=== PATIENT | female | born 1990 | race Caucasian/White ===

== ENCOUNTER → 2020-12-13 08:46 | Outpatient (BNVA) | payer BC, MEDICARE, SELFPAY | PROVIDERS: PCP Registered Nurse; Visit Provider Registered Nurse | DX: K76.0 Fatty (change of) liver, not elsewhere classified (principal); R73.9 Hyperglycemia, unspecified | CPT/HCPCS: 80053; 83036; 85025 ==

== ENCOUNTER → 2020-12-21 08:59 | Outpatient (BNVA) | payer BC, MEDICARE, SELFPAY | PROVIDERS: PCP Registered Nurse; Visit Provider Registered Nurse | DX: E11.9 Type 2 diabetes mellitus without complications (principal); Z71.3 Dietary counseling and surveillance | CPT/HCPCS: 81000 ==

== ENCOUNTER → 2021-06-02 11:33 | Outpatient (BNVA) | payer BC, MEDICARE, SELFPAY | PROVIDERS: PCP Registered Nurse; Visit Provider Registered Nurse | DX: Z01.419 Encounter for gynecological examination (general) (routine) without abnormal findings (principal); Z71.3 Dietary counseling and surveillance | CPT/HCPCS: 87081; 88175 ==

== ENCOUNTER → 2021-06-03 08:42 | Outpatient (BNVA) | payer BC, MEDICARE, SELFPAY | PROVIDERS: PCP Registered Nurse; Visit Provider Surgery | DX: Z11.52 Encounter for screening for COVID-19 (principal) | CPT/HCPCS: 87635 ==

== ENCOUNTER 2021-06-07 07:16 | Outpatient (CLI) | payer BC, MEDICARE, SELFPAY ==
--- NOTE | 2021-06-07 07:45 | US_ITS ---
WS: [id number] ULTRASOUND ABDOMEN CLINICAL INFORMATION: K29.60 - Other gastritis without bleeding COMPARISON: None. FINDINGS: Technically difficult examination due to body habitus. Liver Size: Normal. Craniocaudal length: 14.5 cm. Echogenicity: Coarse Surface nodularity: None. Mass (size and location): None. Bile ducts Intrahepatic ducts: Normal. Common bile duct diameter: 0.5 cm. Gallbladder Normal. Gallstones: None. Gallbladder sludge: None. Gallbladder wall thickening: None. Pericholecystic fluid: None. Sonographic Saenz sign: Absent. Pancreas Not well visualized Spleen Splenomegaly: None. Craniocaudal length: 10.5 cm. Right kidney: Normal. Hydronephrosis: None. Size: 11.7 cm x 5.1 cm x 4.5 cm Left kidney: Normal. Hydronephrosis: None. Size: 11.7 cm x 4.8 cm x 4.8 cm. Abdominal aorta and IVC Visualized portions are normal. Ascites: None. US/US abdomen complete* [id number] IMPRESSION:Technically difficult examination due to body habitus. 1. Diffuse fatty infiltration of the liver. 2. Normal gallbladder. 3. No hydronephrosis in either kidney. 4. Normal spleen.
== END 2021-06-07 07:17 | disposition home or self-care (01) ==
PROVIDERS: PCP Registered Nurse; Visit Provider Surgery
DX: K29.60 Other gastritis without bleeding (principal); K76.0 Fatty (change of) liver, not elsewhere classified
CPT/HCPCS: 76700

== ENCOUNTER 2021-06-09 06:33 | Day surgery (SDC) | payer BC, MEDICARE, SELFPAY ==
[2021-06-07 11:38] VITALS: BMI 42.1
--- NOTE | 2021-06-09 07:13 | ANES.PREANE2 ---
Pre-Anesthetic Assessment Height/Weight: Height 1.7 m Weight 122.016 kg Preop Diagnosis: Epigastric pain Operation Date: 06/09/21 08:30 Proposed Procedures p EGD 57658/k29.60(Not Applicable) - Jaguar Patel MD Familial anesthetic complications: Father had difficulty breathing after prone surgery that patient states was attributed to mouth swelling. Patient has had general anesthesia w/o difficutly Was Beta Ridge taken within 24 hours: N/A Was Clonidine taken within 24 hours: N/A Social No alcohol and No tobacco Exam alert, oriented x 3, clear to auscultation bilaterally and regular rate & rhythm Airway Submandibular: within normal limits Cervical ROM: within normal limits Mallampati: Class III Dentition: full Pulmonary Asthma CV/HEM None reported None reported Hepatic None reported Fatty liver GI IBS Abdominal pain Metabolic Morbid Obesity PCOS [facility] [place] reported Neuropsych None reported Anesthetic Plan ASA status: 2 Anesthesia: Anesthesia Evaluation and General Other: We discussed risk and benefits of general anesthesia including PONV, sore throat (sometimes severe), corneal abrasion, positioning and peripheral nerve injuries, life threatening allergic reaction, post operative ICU admission requiring prolonged intubation, stroke, heart attack, , and rare incidences of recall. Patient consents to proceed with general anesthesia. Risk of > 500 ml blood loss (7ml/kg in children): No Medications/Allergies Home Medications Medication Instructions Recorded Confirmed Last Taken Type No Known Home Medications 06/08/21 06/08/21 Unknown History Allergies Allergy/AdvReac Type Severity Reaction Status Date / Time No Known Allergies Allergy Verified 06/02/21 10:16 [facility] Anesthesia Medical History Asthma Fatty liver IBS (irritable bowel syndrome) PCOS (polycystic ovarian syndrome) Surgical History History of right knee surgery Family History Grandmother Diabetes Mother Diabetes Father Heart disease Social History Smoking and tobacco status: never smoked Alcohol intake: never Adopted: No Caregiver/support person: No Lives independently: No Household members: spouse Marital status: Current occupational status: employed Sexually active: Yes Current gender identity: Female Data Anesthesia Cardiac Studies: No Data to Display
[2021-06-09 07:33] VITALS: BP 135/91; PULSE 101; RESP 18; TEMP 37.2; O2SAT 99
[2021-06-09] MEDS: sodium chloride 0.9% 1,000 ML 30 ML IV (07:39)
[2021-06-09 07:41] LABS: OR HCG Qualitative Urine Negative (Negative)
--- NOTE | 2021-06-09 07:53 | W.PM.OPSFHP ---
Same Day Surgery H&P Indication for Procedure/HPI DATE OF PROCEDURE: June 09, 2021 CHIEF COMPLAINT/INDICATIONFOR SURGICAL PROCEDURE: Abdominal pain PREOP DIAGNOSIS: Epigastric pain PLANNED PROCEDURE: Operation Date: 06/09/21 08:30 Proposed Procedures p EGD 45043/k29.60(Not Applicable) - Jaguar Patel MD 05/04/2021 This is a pleasant 30 years old female patient morbidly obese with a current weight of 273 pounds and a BMI of 44.? Patient reports that she has been encountering epigastric pain being sharp on and off and travels down her side, worse after eating anything gets better by not eating.? Reports that she still have her gallbladder and never been worked up before.? Apparently her pain has been going on for quite some time and just got worse 06/09/2021 Patient comes today for diagnostic EGD due to underlying epigastric pain. Patient had an ultrasound of the abdomen that did show: 1.? Diffuse fatty infiltration of the liver. 2.? Normal gallbladder. 3.? No hydronephrosis in either kidney. 4.? Normal spleen. ? ROS All systems have been reviewed negative except as per the above or per problem list Medications/Allergies* Home Medications Medication Instructions Recorded Confirmed Type No Known Home Medications 06/08/21 06/08/21 History Allergies/Adverse Reactions Allergy/AdvReac Type Severity Reaction Status Date / Time No Known Allergies Allergy Verified 06/09/21 07:54 Current Medications: Generic Name Dose Route Start Last Admin Trade Name Freq PRN Reason Stop Dose Admin Sodium Chloride 1,000 mls @ 30 mls/hr 06/09/21 07:30 06/09/21 07:39 Sodium Chloride 0.9% IV 06/10/21 07:29 30 mls/hr .Q24H RUBINA Administration Pertinent History/Comorbid Conditions* Medical History (Updated 06/02/21 @ 10:57 by CUONG Mcfarlane) Asthma Fatty liver IBS (irritable bowel syndrome) PCOS (polycystic ovarian syndrome) Surgical History (Updated 12/10/20 @ 10:54 by CUONG Mcfarlane) History of right knee surgery Family History (Updated 12/10/20 @ 08:12 by Yari Dennis LPN) Diabetes Grandmother Mother Heart disease Father Social History Smoking and tobacco status: never smoked Alcohol intake: never Adopted: No Caregiver/support person: No Lives independently: No Household members: spouse Marital status: Current occupational status: employed Sexually active: Yes Current gender identity: Female Pertinent Exam Findings alert, oriented x 3, regular rate & rhythm and procedure specific exam findings (Abdominal examination nontender nondistended soft) Recommendations Surgery/Procedure today (EGD with possible biopsy) Coding Level of Care Code Acute Watch Manufacturing Supervisor for Jani Cooper
[2021-06-09 08:52] VITALS: BP 141/99; PULSE 109; RESP 18; TEMP 36.6; O2SAT 94
[2021-06-09 09:11] VITALS: BP 117/84; PULSE 81; RESP 18; O2SAT 95
--- NOTE | 2021-06-09 12:20 | PC.NURSE ---
protonix 40 mg po #30 with 3 refills called to [facility] in [facility]
--- NOTE | 2021-06-09 12:35 | ANE.PACU2 ---
Inpatient post-anesthesia follow up: Airway intact: Yes Vital signs: Temperature 97.8 F Pulse Rate 81 Respiratory Rate 18 Blood Pressure 117/84 Pulse Oximetry 95 Oxygen Delivery Me thod Room Air Oxygen Flow Rate Fraction of Inspir ed Oxygen Hydration adequate: Yes Nausea and vomiting: No Pain level: 1 Mental status: Baseline
== END 2021-06-09 09:24 | disposition home or self-care (01) ==
PROVIDERS: PCP Registered Nurse; Visit Provider Surgery
PROC: 0DJ08ZZ Inspection of Upper Intestinal Tract, Via Natural or Artificial Opening Endoscopic (ICD-10-PCS; CPT 43235; principal; 2021-06-09 08:30)
DX: R10.13 Epigastric pain (principal); E66.01 Morbid (severe) obesity due to excess calories; Z68.41 Body mass index [BMI] 40.0-44.9, adult; J45.909 Unspecified asthma, uncomplicated; E28.2 Polycystic ovarian syndrome; K29.70 Gastritis, unspecified, without bleeding
CPT/HCPCS: 43239; 84703; 88305; 88342; J2704; J7030

== ENCOUNTER 2021-07-04 08:34 | Outpatient (CLI) | payer BC, MEDICARE, SELFPAY ==
--- NOTE | 2021-07-04 10:00 | NM_ITS ---
WS: [id number] NUCLEAR MEDICINE HIDA SCAN WITH GALLBLADDER EJECTION FRACTION HISTORY: R10.13 - Epigastric pain COMPARISON: Ultrasound 06/07/2021 TECHNIQUE: The patient was intravenously injected with 8.4 mCi of TC99m Mebrofenin. Immediate imaging over the right upper quadrant was followed by 5 minute image and additional images for a total of 90 minutes. Slight delay in distention of the gallbladder. Normal uptake of radiotracer throughout the liver. Activity identified in the gallbladder at 30 minutes and minimally well distended by 60 minutes. Oscar tional 30 minutes waited for imaging the EF to better distend the gallbladder. Activity in the proximal small bowel was seen by 20 minutes. Good washout of the radiotracer from the liver by 60 minutes. The patient then drank 8 ounces of Ensure Plus. Ejection fraction at 90 minutes was 92%. Normal GB ej ection fraction is 35-75%. Post fatty meal symptoms: None. NM/NM hepatobiliary w phar* [id number] IMPRESSION: 1. Normal HIDA scan. 2. Normal gallbladder ejection fraction.
== END 2021-07-04 08:35 | disposition home or self-care (01) ==
PROVIDERS: PCP Registered Nurse; Visit Provider Surgery
DX: R10.13 Epigastric pain (principal)
CPT/HCPCS: 78227; A9537

== ENCOUNTER → 2021-07-18 09:25 | Outpatient (BNVA) | payer BC, MEDICARE, SELFPAY | PROVIDERS: PCP Registered Nurse; Visit Provider Surgery | DX: R10.13 Epigastric pain (principal); R10.11 Right upper quadrant pain | CPT/HCPCS: 99213 ==

== ENCOUNTER 2021-07-25 09:23 | Day surgery (SDC) | payer BC, MEDICARE, SELFPAY ==
[2021-07-22 13:55] VITALS: BMI 42.3
[2021-07-25] VITALS (12 sets, daily range): BP systolic 129–172; BP diastolic 86–107; PULSE 78–97; RESP 14–20; TEMP 36.1–36.9; O2SAT 92–99
[2021-07-25 10:07] LABS: OR HCG Qualitative Urine Negative (Negative)
[2021-07-25] MEDS: sodium chloride 0.9% 1,000 ML 30 ML IV (10:15)
[2021-07-25] MEDS: acetaminophen 1,000 MG/100 ML PIGGYBACK 400 MG IV (10:16)
[2021-07-25] MEDS: heparin 5,000 unit/mL INJ 1 mL 3000 UNIT SUBCUT (10:16)
--- NOTE | 2021-07-25 10:28 | ANES.PREANE2 ---
Pre-Anesthetic Assessment Height/Weight: Height 1.7 m Weight 122.47 kg Temp Pulse Resp BP Pulse Ox 97.4 F L 81 20 H 141/102 99 07/25/21 09:53 07/25/21 09:53 07/25/21 09:53 07/25/21 09:53 07/25/21 09:53 Preop Diagnosis: Biliary dyskinesia Operation Date: 07/25/21 11:25 Proposed Procedures p Laparoscopic Cholecystectomy 78300/epigastric pain R10.13(Not Applicable) - Jaguar Patel MD Familial anesthetic complications: None Was Beta Ridge taken within 24 hours: N/A Was Clonidine taken within 24 hours: N/A Last intake: Intake Last Liquid Date 07/24/21 Last Liquid Time 21:00 Last Solid Date 07/24/21 Last Solid Time 14:00 Social No alcohol and No tobacco Exam alert, oriented x 3, clear to auscultation bilaterally and regular rate & rhythm Airway Submandibular: within normal limits Cervical ROM: within normal limits Mallampati: Class II Dentition: full Pulmonary Asthma GI Gastroesophageal Reflux Disease Metabolic Morbid Obesity Anesthetic Plan ASA status: 3 Anesthesia: General Medications/Allergies Home Medications Medication Instructions Recorded Confirmed Last Taken Type pantoprazole 40 mg tablet,delayed 40 mg PO DAILY 30 Days #30 tab 06/09/21 07/25/21 06/23/21 Rx release (Protonix) Allergies Allergy/AdvReac Type Severity Reaction Status Date / Time egg Allergy Unknown Verified 07/25/21 09:47 Current Medications Generic Name Dose Route Start Last Admin Trade Name Freq PRN Reason Stop Dose Admin Sodium Chloride 1,000 mls @ 30 mls/hr 07/25/21 09:45 07/25/21 10:15 Sodium Chloride 0.9% IV 07/26/21 09:44 30 mls/hr .Q24H RUBINA Administration PFSH Anesthesia Medical History Asthma Fatty liver IBS (irritable bowel syndrome) PCOS (polycystic ovarian syndrome) Surgical History (Updated 07/22/21 @ 13:55 by Sherrill Monsalve) History of right knee surgery Family History Grandmother Diabetes Mother Diabetes Father Heart disease Social History Smoking and tobacco status: never smoked Alcohol intake: never Adopted: No Caregiver/support person: No Lives independently: No Household members: spouse Marital status: Current occupational status: employed Sexually active: Yes Current gender identity: Female Female Reproductive History Date of last menstrual period: 07/18/21 Data Anesthesia Cardiac Studies: No Data to Display
--- NOTE | 2021-07-25 10:41 | W.PM.OPSUD ---
Surgery/Procedure H&P Update DATE OF PROCEDURE: July 25, 2021 DATE H&P PERFORMED: 07/18/21 H&P UPDATE INFORMATION: I have reviewed H&P completed within last 30 days, I have examined patient prior to procedure and Changes to prior documentation as noted here (Patient lost weight 8 pounds) PREOP DIAGNOSIS: Biliary dyskinesia PRIMARY INDICATION FOR PROCEDURE: The same PLANNED PROCEDURE: Operation Date: 07/25/21 11:25 Proposed Procedures p Laparoscopic Cholecystectomy 46384/epigastric pain R10.13(Not Applicable) - Jaguar Patel MD
[2021-07-25] MEDS: ampicillin-sulbactam 3 GM in sodium chloride 0.9% (plus) 50 ML IV (10:56)
[2021-07-25] MEDS: lidocaine 2% INJ 20 mL INJECTION (11:19)
--- NOTE | 2021-07-25 12:19 | P.OP_ITS ---
Operative Report Date of procedure: July 25, 2021 Pre-op diagnosis: Preop Diagnosis Biliary dyskinesia Post-op diagnosis: Chronic cholecystitis and fatty liver Procedure done: 1-Laparoscopic cholecystectomy 2-Laparoscopic liver biopsy Implants: Surgicel in the gallbladder fossa Specimens removed/disposition: Gallbladder and contents Liver edge biopsy for appropriate staging of fatty liver Lymph node of Julissa Surgeon: Jaguar Patel MD Ballet Teacher: Surgical naveen Trujillo Anesthesia: General (GETA LABOR ARBITRATOR Will Smart) Estimated blood loss: 15 IV fluids: 500 Procedure: Patient was identified in the holding area and taken back to the operative suite, placed in supine position intubated by anesthesia . Time-out was done verifying the patient's name/date of /planned procedure and destination after the procedure, all were in agreement. SCDs confirmed to be functioning, preoperative antibiotics administered per protocol, and beta stefanie protocol was confirmed. Patient was appropriately secured to the table, footboard was applied to the OR table, before prep and drape anesthesia was asked to tilt the table back and forth to make sure that the patient is appropriately secured and she was. Prep and drape of the abdomen was done under the usual sterile technique, followed by that supraumbilical skin incision,skin incision was done by a 15 blade knife, and stay sutures were applied to the fascia and Morgan trocar technique was used to enter the abdominal without injuring any abdominal visc era, started by low flow gas insufflation followed by a high flow, started with a 10 mm laparoscope and under direct vision there was no evidence of any injuries, the scope then switched to a 30? ,10 millimeter scope and under direct visualization 5 millimeter trocar was inserted in the epigastric region followed by two 5 mm trocars were inserted in the right upper quadrant that was done after injection of local lidocaine 2% at all incision sites. Gallbladder showed chronic cholecystitis and Fatty Liver Patient was then positioned in the head up and tilted to the left. Ratcheted forceps were introduced into the lateral most 5mm port and was applied unto the fundus of the gallbladder cephalad and using Bullet forceps the infundibulum of the gallbladder was retracted laterally. Using [place] forceps then L-hook cautery to dissect the peritoneum overlying the Calot's triangle which was then opened medially and laterally until the cystic duct and the cystic artery were skeletonized. Dissection was carried along the body of the gallbladder and after ensuring critical view of safety was identfied. Cystic duct and cystic artery where seen connected to the gallbladder. Clips wer e applied on the cystic duct towards the common bile duct 1 towards the gallbladder then divided is in sharp scissors, 2 clips were then applied onto the cystic artery and 1 towards the gallbladder and divided by sharp scissors. Lymph node was dissected and sent separately. Dissection was then carried along of the gallbladder from the gallbladder fossa using cautery as well as sharp dissection with heat energy. The gallbladder then was dissected out from the gallbladder fossa totally , cholecystectomy was then achieved, I decided at this point to take a portion of the liver edge for liver biopsy for appropriate staging of fatty liver specimens were placed in an Endo Catch bag and then retrieved from the Morgan trocar site under direct visualization using a 5 mm 30? scope through the epigastric trocar, specimen was then passed to the circulating nurse to go for permanent pathology,irrigation and hemostasis was done to the gallbladder fossa after hemostasis was secured and finalized by placement of pieces of Surgicel at the gallbladder fossa final survey laparoscopy was done that showed no injuries. Suction irrigation was obtained. The supraumbilical fascial defect was then closed using interrupted number one PDS sutures using a fascial closure device ;Bobo Issa under direct visualization following that Gas was allowed to deflate,Trocars were then taken out under direct vision there was no evidence of bleeding. Specimen was passed to the circulating nurse for permanent pathology. No drains were placed and the supraumbilical incision as well as all trocar sites were closed by 3/0 Vicryl followed by 4-0 Monocryl to approximate the skin edges of the incisions , dressing was applied in the form of surical glue and the patient patient got extubated and was taken to recovery area in a stable condition. Count of sponges,needles and instruments were completed at the end of the procedure I was present for the whole entire procedure.
[2021-07-25] MEDS: fentaNYL 50 mcg/mL INJ 2mL IVP ×2 (12:29→12:34)
[2021-07-25] MEDS: HYDROmorphone 1 mg/mL INJ 1 mL 0.25 MG IVP (12:45)
[2021-07-25] MEDS: HYDROcodone-acetaminophen 5-325 mg Tablet 1 TAB PO (13:24)
--- NOTE | 2021-07-25 14:21 | ANE.PACU2 ---
Inpatient post-anesthesia follow up: Airway intact: Yes Vital signs: Temperature 98.1 F Pulse Rate 93 Respiratory Rate 18 Blood Pressure 147/90 Pulse Oximetry 96 Oxygen Delivery Me thod Room Air Oxygen Flow Rate 6 Fraction of Inspir ed Oxygen Hydration adequate: Yes Nausea and vomiting: No Pain level: 3 Mental status: Baseline
== END 2021-07-25 14:05 | disposition home or self-care (01) ==
PROVIDERS: PCP Registered Nurse; Visit Provider Surgery
PROC: 0FT44ZZ Resection of Gallbladder, Percutaneous Endoscopic Approach (ICD-10-PCS; CPT 47562; principal; 2021-07-25 11:15)
DX: K80.10 Calculus of gallbladder with chronic cholecystitis without obstruction (principal); K76.0 Fatty (change of) liver, not elsewhere classified; R59.9 Enlarged lymph nodes, unspecified; K21.9 Gastro-esophageal reflux disease without esophagitis; E66.01 Morbid (severe) obesity due to excess calories; Z68.41 Body mass index [BMI] 40.0-44.9, adult; E28.2 Polycystic ovarian syndrome; Z82.49 Family history of ischemic heart disease and other diseases of the circulatory system; Z83.3 Family history of diabetes mellitus
CPT/HCPCS: 47379; 47562; 81025; 84703; 88304; 88305; 88307; J0295; J1100; J1170; J1644; J2405; J2704; J2710; J3010; J3490; J7030

== ENCOUNTER → 2021-10-31 10:02 | Outpatient (BNVA) | payer MEDICARE, SELFPAY | PROVIDERS: PCP Registered Nurse; Visit Provider Registered Nurse | DX: E11.9 Type 2 diabetes mellitus without complications (principal); I10 Essential (primary) hypertension; J45.30 Mild persistent asthma, uncomplicated | CPT/HCPCS: 80053; 83036; 85025 ==

== ENCOUNTER → 2021-12-13 10:11 | Outpatient (BNVA) | payer BC, MEDICARE, SELFPAY | PROVIDERS: PCP Registered Nurse; Visit Provider Registered Nurse | DX: R10.9 Unspecified abdominal pain (principal); N39.0 Urinary tract infection, site not specified | CPT/HCPCS: 81000 ==

== ENCOUNTER → 2021-12-20 09:25 | Outpatient (BNVA) | payer MEDICARE, BC, SELFPAY | PROVIDERS: PCP Registered Nurse; Visit Provider Registered Nurse | DX: N39.0 Urinary tract infection, site not specified (principal) | CPT/HCPCS: 81000; 87077; 87086; 87184 ==

== ENCOUNTER → 2022-02-07 11:11 | Outpatient (BNVA) | payer MEDICARE, SELFPAY | PROVIDERS: PCP Registered Nurse; Visit Provider Registered Nurse | DX: E11.9 Type 2 diabetes mellitus without complications (principal); J45.30 Mild persistent asthma, uncomplicated; J45.40 Moderate persistent asthma, uncomplicated | CPT/HCPCS: 80053; 83036 ==

== ENCOUNTER → 2022-02-23 08:44 | Outpatient (BNVA) | payer MEDICARE, SELFPAY | PROVIDERS: PCP Registered Nurse; Visit Provider Nurse Practitioner Family | DX: R10.9 Unspecified abdominal pain (principal); E11.9 Type 2 diabetes mellitus without complications; E86.0 Dehydration; Z90.49 Acquired absence of other specified parts of digestive tract; Z98.890 Other specified postprocedural states | CPT/HCPCS: 80053; 81000; 85025 ==

== ENCOUNTER → 2022-04-11 08:39 | Outpatient (BNVA) | payer MEDICARE, BC, SELFPAY | PROVIDERS: PCP Registered Nurse; Referring Provider Nurse Practitioner Family; Visit Provider Internal Medicine | DX: E78.2 Mixed hyperlipidemia (principal); E11.9 Type 2 diabetes mellitus without complications; K76.0 Fatty (change of) liver, not elsewhere classified | CPT/HCPCS: 80061 ==

== ENCOUNTER 2022-05-08 19:45 | Emergency (ER) | payer BC, SELFPAY ==
[2022-05-08 19:48] VITALS: BP 151/105; PULSE 75; RESP 20; TEMP 36.7; O2SAT 98; BMI 40.7
--- NOTE | 2022-05-08 19:48 | XRR_ITS ---
PROCEDURE INFORMATION: Exam: XR Chest Exam date and time: 05/08/2022 8:10 PM Age: 31 years old Clinical indication: Pain; Chest pressure and other: HX of asthma; Additional info: SOB TECHNIQUE: Imaging protocol: Radiologic exam of the chest. Views: 1 view. COMPARISON: ES surgery / GI images 07/25/2021 9:27 AM FINDINGS: Lungs: Unremarkable. No consolidation. Pleural spaces: Unremarkable. No pleural effusion. No pneumothorax. Heart/Mediastinum: Unremarkable. No cardiomegaly. Bones/joints: No acute findings. XR/XR chest 1V portable [id number] IMPRESSION: No acute findings.
--- NOTE | 2022-05-08 19:57 | ED_ITS ---
HPI - Asthma General: Chief Complaint: Asthma Stated Complaint: Asthma Attach Time Seen by Provider: 05/08/22 19:57 History of Present Illness: 31-year-old female comes in today with complaints of increased shortness of breath. Patient is asthmatic. Patient reports asthma since childhood. Patient appears in no pain. Patient appears nontoxic. Respirations are even and patient is able to speak full sentences. Associated symptoms: Deny chest pain or fever(s) Review of Systems Const: Denies: fever(s) ENMT: Denies: throat pain Card: Denies: chest pain Resp: Reports: dyspnea GI: Denies: nausea or vomiting Skin/Breast: Denies: rash PFSH ED PFSH: Medical History Asthma Fatty liver IBS (irritable bowel syndrome) PCOS (polycystic ovarian syndrome) Right upper quadrant abdominal pain Surgical History History of ankle surgery History of cholecystectomy History of right knee surgery Family History Grandmother Diabetes Mother Diabetes Cancer Father Heart disease Cancer Social History Smoking and tobacco status: never smoked Alcohol intake: never Adopted: No Caregiver/support person: No Lives independently: No Household members: spouse Marital status: Current occupational status: employed Sexually active: Yes Current gender identity: Female Female Reproductive History: Date of last menstrual period: 07/18/21 Physical Exam Const: COMMON NORMALS: alert HENMT: COMMON NORMALS: normocephalic HEAD & SCALP: normocephalic MOUTH: Normal oral and palatal mucosa present Neck/C-Spine: COMMON NORMALS: full ROM Resp: COMMON NORMALS: normal respiratory effort AUSCULTATION: diminished lung sounds (Decreased sounds bilaterally in the bases no wheezing) Cardio: COMMON NORMALS: regular rate and regular rhythm RATE: regular rate RHYTHM: regular rhythm Extremity: COMMON NORMALS: no pedal edema Neuro: SENSORIUM/ORIENTATION: Yes alert Skin: COMMON NORMALS: no rashes or lesions noted GENERAL SKIN EXAM: no rashes or lesions noted Course Vital Signs: Vital signs: Vital Signs Temperature 98.0 F 05/08/22 21:05 Pulse Rate 80 05/08/22 21:05 Respiratory Rate 18 05/08/22 21:05 Blood Pressure 131/84 05/08/22 21:05 Pulse Oximetry 96 05/08/22 21:05 Oxygen Delivery Me thod 05/08/22 20:46 MDM - Asthma Medical Decision Making 32-year-old female comes in today with complaints of increased shortness of breath. Patient appears nontoxic. On exam lungs are decreased in the bases. Patient speaks in full sentences and appears in no distress. Vital signs are normal. Differential diagnosis includes exacerbation of asthma, upper respiratory infection, viral syndrome. Patient was given updraft treatment of DuoNeb. Patient was given 10 mg dexamethasone IM. No signs of serious illness or injury was noted. Patient be continued on oral prednisone and recommendations follow-up with primary care in 2 to 3 days. Lab Data Radiology Impressions Chest X-Ray 05/08/22 19:48 IMPRESSION: No acute findings. Discharge Plan Discharge Patient Disposition: Home Clinical Impression: Asthma with acute exacerbation Qualifiers: Asthma severity: moderate Asthma persistence: persistent Qualified Code(s): J45.41 - Moderate persistent asthma with (acute) exacerbation Condition: Stable Prescriptions: New prednisone 20 mg tablet 20 mg PO BID 5 Days Qty: 10 0RF No Action epinephrine 0.1 mg/0.1 mL auto-injector SUBCUT albuterol sulfate [Ventolin HFA] 90 mcg/actuation HFA aerosol inhaler 1 inh inhalation QID 30 Days Qty: 8.5 2RF metformin 500 mg tablet 500 mg PO BID PRN (Reason: diabetes) 90 Days Qty: 90 0RF albuterol sulfate 2.5 mg /3 mL (0.083 %) solution for nebulization 2.5 mg inhalation Q8H PRN (Reason: bronchospasm) Qty: 180 0RF fluticasone propion-salmeterol [Advair Diskus] 250-50 mcg/dose blister with device 1 inh inhalation BID 30 Days Qty: 60 0RF Ozempic 0.25 mg or 0.5 mg(2 mg/1.5 mL) pen injector 0.5 mg SUBCUT .weekly Qty: 4.5 0RF Ozempic 0.25 mg or 0.5 mg(2 mg/1.5 mL) pen injector 0.25 mg SUBCUT Q7D Qty: 8 2RF Rx Instructions: o.25mg weekly for 1month and 0.5mg weekly and continue pantoprazole [Protonix] 40 mg tablet,delayed release (DR/EC) 40 mg PO BID 14 Days Qty: 28 0RF (DME) blood-glucose meter [Blood Glucose Monitoring] Kit See Rx Instructions .Route Qty: 1 0RF Rx Instructions: two times daily Discharge Orders: Discharge ED (Routine); Ordered 05/08/22 Ordered By: Jatinder Escalera Referrals: Kamari Ruiz FNP [Primary Care Provider] - Patient Instructions: Asthma (ED) Activity Restrictions/Additional Instructions: Home and rest. Continue with routine medications. Take steroid prednisone 20 mg 2 times a day for the next 5 days. Follow-up with primary care for further instruction and evaluation. Return to emergency department for worsening symptoms or new concerns. Coding Level of Care Code ED Business Machine Mechanic for Jani Cooper
[2022-05-08] MEDS: dexamethasone 10 mg/mL INJ IM (20:13)
[2022-05-08] MEDS: ipratropium-albuterol 3 mL Neb INHALATION (20:42)
[2022-05-08 20:46] VITALS: PULSE 78; RESP 14; O2SAT 95
[2022-05-08 21:05] VITALS: BP 131/84; PULSE 80; RESP 18; TEMP 36.7; O2SAT 96
== END 2022-05-08 21:03 | disposition home or self-care (01) ==
PROVIDERS: Emergency Provider Nurse Practitioner Family; PCP Registered Nurse
DX: J45.41 Moderate persistent asthma with (acute) exacerbation (principal); Z79.84 Long term (current) use of oral hypoglycemic drugs
CPT/HCPCS: 71045; 94640; 96372; 99284; J1100

== ENCOUNTER 2022-05-26 10:45 | Outpatient (CLI) | payer BC, SELFPAY ==
--- NOTE | 2022-05-26 11:03 | XR_ITS ---
WS: [id number] XR lumbar spine 2-3V* [id number] REASON FOR EXAM: M54.40 - Lumbago with sciatica, unspecified side FINDINGS: Normal lumbar curvatures. No significant vertebral body abnormality. Minimal osteophytic spurring at L1-2 and L2-3. Intervertebral disc spaces are relatively well-preserved. Mild narrowing at L1-L2 and L2-L3. No spondylolysis. No significant neutral listhesis. Facet joints are unremarkable. XR/XR lumbar spine 2-3V* [id number] IMPRESSION: Minimal change of degenerative spondylosis as above.
== END 2022-05-26 10:46 | disposition home or self-care (01) ==
LOC: RAD 10:53
PROVIDERS: PCP Registered Nurse; Visit Provider Registered Nurse
DX: M54.40 Lumbago with sciatica, unspecified side (principal); M47.896 Other spondylosis, lumbar region
CPT/HCPCS: 72100

== ENCOUNTER → 2022-07-11 10:03 | Outpatient (BNVA) | payer BC, SELFPAY | PROVIDERS: Visit Provider Internal Medicine | DX: E11.9 Type 2 diabetes mellitus without complications (principal); K76.0 Fatty (change of) liver, not elsewhere classified; E78.2 Mixed hyperlipidemia; E16.2 Hypoglycemia, unspecified | CPT/HCPCS: 36415; 80053; 80061; 82044; 83036 ==

== ENCOUNTER 2022-07-19 11:22 | Outpatient (RCR) | payer OTHER, BC, SELFPAY | END 2022-07-23 23:59 | disposition home or self-care (01) | LOC: SPT 11:22 | PROVIDERS: PCP Registered Nurse; Visit Provider Registered Nurse | DX: M54.40 Lumbago with sciatica, unspecified side (principal) | CPT/HCPCS: 97110; 97161 ==

== ENCOUNTER 2022-07-24 06:00 | Outpatient (RCR) | payer OTHER, BC, SELFPAY | END 2022-08-23 23:59 | disposition home or self-care (01) | LOC: SPT 06:00 | PROVIDERS: PCP Registered Nurse; Visit Provider Registered Nurse | DX: S39.012D Strain of muscle, fascia and tendon of lower back, subsequent encounter (principal); X58.XXXD Exposure to other specified factors, subsequent encounter | CPT/HCPCS: 97110 ==

== ENCOUNTER 2022-08-24 06:00 | Outpatient (RCR) | payer OTHER, BC, SELFPAY | END 2022-09-22 23:59 | disposition home or self-care (01) | LOC: SPT 06:00 | PROVIDERS: PCP Registered Nurse; Visit Provider Registered Nurse | DX: S39.012D Strain of muscle, fascia and tendon of lower back, subsequent encounter (principal); X58.XXXD Exposure to other specified factors, subsequent encounter | CPT/HCPCS: 97110 ==

== ENCOUNTER → 2022-10-06 08:13 | Outpatient (BNVA) | payer OTHER, BC, SELFPAY | PROVIDERS: PCP Registered Nurse; Visit Provider Podiatrist Foot & Ankle Surgery | DX: L84 Corns and callosities (principal); Q66.71 Congenital pes cavus, right foot; Q66.72 Congenital pes cavus, left foot; E11.9 Type 2 diabetes mellitus without complications | CPT/HCPCS: 73630 ==

== ENCOUNTER 2022-12-10 23:26 | Emergency (ER) | payer OTHER, BC, SELFPAY ==
[2022-12-10 23:36] VITALS: BP 150/109; PULSE 100; RESP 16; TEMP 36.8; O2SAT 97; BMI 42.4
--- NOTE | 2022-12-10 23:43 | ED_ITS ---
HPI - Abdominal Pain General: Chief Complaint: Abdominal Pain Stated Complaint: vomiting Time Seen by Provider: 12/10/22 23:42 History of Present Illness: 32-year-old female comes in tonight with complaints of abdominal pain with nausea vomiting and diarrhea starting at about 1030 this evening. Patient appears nontoxic. Patient appears no acute distress. Patient has had a history of gallbladder surgery removal. Patient denies any chronic medical problems. Review of the record notes that patient has medication for asthma and weight loss. Other historic surgeries are orthopedic. Associated Symptoms: Reports diarrhea, nausea and vomiting Review of Systems General: Reports: 10 or more systems reviewed and unremarkable except in HPI and below GI: Reports: abdominal pain, nausea, vomiting and diarrhea PFS ED PFSH: Medical History (Updated 12/11/22 @ 01:02 by CUONG Mcdonald) Asthma Fatty liver IBS (irritable bowel syndrome) PCOS (polycystic ovarian syndrome) Right upper quadrant abdominal pain Surgical History History of ankle surgery History of cholecystectomy History of right knee surgery Family History Grandmother Diabetes Mother Diabetes Cancer Father Heart disease Cancer Social History Smoking and tobacco status: never smoked Alcohol intake: never Substance/Drug Use: never Adopted: No Caregiver/support person: No Lives independently: No Household members: spouse Marital status: Current occupational status: employed Sexually active: Yes Do you think of yourself as: Straight/Heterosexual Current gender identity: Female Physical Exam Const: COMMON NORMALS: alert HENMT: COMMON NORMALS: normocephalic HEAD & SCALP: normocephalic Neck/C-Spine: COMMON NORMALS: full ROM Resp: COMMON NORMALS: normal respiratory effort and clear to auscultation bilaterally AUSCULTATION: clear to auscultation bilaterally Cardio: COMMON NORMALS: regular rate and regular rhythm RATE: regular rate RHYTHM: regular rhythm GI: COMMON NORMALS: Soft to palpation PALPATION: Yes Soft to palpation and Yes Tenderness to palpation present (GI) (Generalized mild) Extremity: COMMON NORMALS: normal to inspection Neuro: SENSORIUM/ORIENTATION: Yes alert Skin: COMMON NORMALS: turgor normal GENERAL SKIN EXAM: turgor normal Course Vital Signs: Vital signs: Vital Signs Temperature 98.2 F 12/10/22 23:36 Pulse Rate 104 H 12/11/22 00:16 Respiratory Rate 16 12/11/22 00:16 Blood Pressure 151/95 12/11/22 00:16 Pulse Oximetry 95 12/11/22 00:16 Oxygen Delivery Me thod Room Air 12/11/22 00:16 MDM - Abdominal Pain Medical Decision Making Patient comes in with onset of nausea vomiting and diarrhea started about 1030 this evening. Patient denies any other complaints. Patient appears nontoxic. Patient appears in mild pain. On exam patient has some generalized abdominal tenderness. Bowel sounds are hyperactive. Skin is warm and dry. Vital signs are normal except for some elevated blood pressure. Differential diagnosis includes not limited to pancreatitis, gastritis, gastroenteritis, colitis, dehydration. CBC had some mild leukocytosis at 13,000. CMP noted a blood glucose of 172 and some mild elevation in ALT and alkaline phosphatase. Patient was improved after 1 L of IV fluids, Zofran, and 4 mg of morphine. Patient be continued on medications for nausea and pain. Patient was encouraged to stay on a clear liquid diet until her pain resolves then increase back to a normal diet. Patient was recommended to monitor for worsening symptoms such as high fever, blood in vomit or stool, or new concerns. Patient was stable and discharged to home. Lab Data 12/10/22 23:55 12/10/22 23:55 Labs/Radiology: Laboratory Results WBC 13.09 10^3/uL (3.29-11.43) H 12/10/22 23:55 RBC 5.43 10^6/uL (3.85-5.65) 12/10/22 23:55 Hgb 14.10 g/dL (11.27-16.99) 12/10/22 23:55 Hct 44.5 % (36-47) 12/10/22 23:55 MCV 82.0 fl (85-98) L 12/10/22 23:55 MCH 26.0 pg (27-33) L 12/10/22 23:55 MCHC 31.7 g/dL (30-55) 12/10/22 23:55 RDW 13.9 % (12.1-15.1) 12/10/22 23:55 Plt Count 282 10^3/cmm (157-399) 12/10/22 23:55 MPV 10.2 fL (7.4-10.4) 12/10/22 23:55 Neut % (Auto) 81.0 % 12/10/22 23:55 Lymph % (Auto) 14.1 % 12/10/22 23:55 Newton % (Auto) 3.1 % 12/10/22 23:55 Eos % (Auto) 0.9 % 12/10/22 23:55 Baso % (Auto) 0.3 % 12/10/22 23:55 Neut # (Auto) 10.61 10^3/uL (1.8-7.7) H 12/10/22 23:55 Lymph # (Auto) 1.8 10^3/uL (0.8-4.8) 12/10/22 23:55 Newton # (Auto) 0.4 10^3/uL (0.2-0.9) 12/10/22 23:55 Eos # (Auto) 0.1 10^3/uL (0.0-0.8) 12/10/22 23:55 Baso # (Auto) 0.0 10^3/uL (0.0-0.1) 12/10/22 23:55 Nucleated RBC % (auto) 0 % 12/10/22 23:55 Nucleated RBCs # 0.0 /100WBC 12/10/22 23:55 Sodium 137 mmol/L (136-145) 12/10/22 23:55 Potassium 3.6 mmol/L (3.5-5.1) 12/10/22 23:55 Chloride 103 mmol/L (98-107) 12/10/22 23:55 Carbon Dioxide 21 mmol/L (22-29) L 12/10/22 23:55 Anion Gap 16.6 (5-19) 12/10/22 23:55 BUN 13 mg/dL (6-20) 12/10/22 23:55 Creatinine 0.7 mg/dL (0.5-0.9) 12/10/22 23:55 GFR Calculation 96.4 mL/min (90-130) 12/10/22 23:55 Glucose 172 mg/dL (65-115) H 12/10/22 23:55 Calculated Osmolality 288 mOsm/kg (285-295) 12/10/22 23:55 Calcium 9.1 mg/dL (8.5-10.5) 12/10/22 23:55 Total Bilirubin 0.4 mg/dL (0.15-1.2) 12/10/22 23:55 AST 30 U/L (0-32) 12/10/22 23:55 ALT 41 U/L (0-33) H 12/10/22 23:55 Alkaline Phosphatase 106 U/L (35-105) H 12/10/22 23:55 Total Protein 8.0 g/dL (6.6-8.7) 12/10/22 23:55 Albumin 4.4 g/dL (3.5-5.2) 12/10/22 23:55 Globulin 3.6 g/dL (1.3-4.6) 12/10/22 23:55 Lipase 29 U/L (13-60) 12/10/22 23:55 HCG, Qual Negative (Negative) 12/10/22 23:55 No radiology studies performed this visit Discharge Plan Discharge Patient Disposition: Home Clinical Impression: Gastroenteritis Condition: Stable Prescriptions: New ondansetron 4 mg tablet,disintegrating 4 mg PO Q8H PRN (Reason: nausea and vomiting) Qty: 7 0RF hydrocodone-acetaminophen 5-325 mg tablet 1 tab PO Q8H PRN (Reason: pain (scale score 7-10)) Qty: 7 0RF No Action epinephrine 0.1 mg/0.1 mL auto-injector SUBCUT albuterol sulfate [Ventolin HFA] 90 mcg/actuation HFA aerosol inhaler 1 inh inhalation QID 30 Days Qty: 8.5 2RF albuterol sulfate 2.5 mg /3 mL (0.083 %) solution for nebulization 2.5 mg inhalation Q8H PRN (Reason: bronchospasm) Qty: 180 0RF fluticasone propion-salmeterol [Advair Diskus] 250-50 mcg/dose blister with device 1 inh inhalation BID 30 Days Qty: 60 0RF Ozempic 0.25 mg or 0.5 mg(2 mg/1.5 mL) pen injector 0.5 mg SUBCUT .weekly Qty: 4.5 0RF lidocaine 5 % adhesive patch,medicated 3 patch topical DAILY Qty: 15 0RF Rx Instructions: leave on most painful area for up to 12 hrs meloxicam 15 mg tablet 15 mg PO DAILY Qty: 20 0RF (DME) blood-glucose meter [Blood Glucose Monitoring] Kit See Rx Instructions .Route Qty: 1 0RF Rx Instructions: two times daily Discharge Orders: Discharge ED (Routine); Ordered 12/11/22 Ordered By: Jatinder Escalera Referrals: Kamari Ruiz FNP [Primary Care Provider] - Discharge Diet: Usual diet Discharge Activity: Increase activity as tolerated Patient Instructions: Gastroenteritis (ED) Activity Restrictions/Additional Instructions: Home and rest. Drink plenty of fluids. Start with sips of fluids frequently to maintain hydration. Stay on a clear liquid diet until abdominal pain resolves. Follow-up with primary care in 2 to 3 days for recheck. Return to ED for worsening symptoms such as fever greater than 100.4, blood in vomit or stool, uncontrolled abdominal pain. Coding Level of Care Code ED Supervisor Paper Testing for Jani Cooper
[2022-12-10 23:55] VITALS: BP 146/124; RESP 20; O2SAT 94
[2022-12-10 23:58] LABS: Basophils % 0.3 %; Eosinophils # 0.1 10^3/uL (0.0-0.8); Eosinophils % 0.9 %; Hematocrit 44.5 % (36-47); Lymphocytes # 1.8 10^3/uL (0.8-4.8); Lymphocytes % 14.1 %; Mean Corpuscular HGB Conc 31.7 g/dL (30-55); Mean Platelet Volume 10.2 fL (7.4-10.4); Monocytes # 0.4 10^3/uL (0.2-0.9); Monocytes % 3.1 %; Neutrophils # 10.61 10^3/uL (1.8-7.7); Nucleated Red Blood Cells % 0 %; Platelet Count 282 10^3/cmm (157-399); Red Blood Count 5.43 10^6/uL (3.85-5.65); Red Cell Distribution Width 13.9 % (12.1-15.1); White Blood Count 13.09 10^3/uL (3.29-11.43)
[2022-12-11] MEDS: sodium chloride 0.9% 1,000 ML 999 ML IV (00:14)
[2022-12-11] MEDS: ondansetron 2 mg/ML SDV 2 mL 4 MG IVP (00:15)
[2022-12-11 00:16] VITALS: BP 151/95; PULSE 104; RESP 16; O2SAT 95
[2022-12-11] MEDS: morphine 4 mg/mL SDV 1 mL IVP (00:17)
[2022-12-11 00:21] LABS: Alanine Aminotransferase 41 U/L (0-33); Albumin Level 4.4 g/dL (3.5-5.2); Alkaline Phosphatase 106 U/L (35-105); Anion Gap 16.6 (5-19); Aspartate Amino Transferase 30 U/L (0-32); Blood Urea Nitrogen 13 mg/dL (6-20); Calcium 9.1 mg/dL (8.5-10.5); Carbon Dioxide 21 mmol/L (22-29); Chloride 103 mmol/L (98-107); Globulin 3.6 g/dL (1.3-4.6); Glomerular Filtration Rate 96.4 mL/min (90-130); Glucose 172 mg/dL (65-115); Lipase 29 U/L (13-60); Osmolality Calculated 288 mOsm/kg (285-295); Potassium 3.6 mmol/L (3.5-5.1); Sodium 137 mmol/L (136-145); Total Bilirubin 0.4 mg/dL (0.15-1.2)
[2022-12-11 00:30] LABS: HCG, Serum Qual Negative (Negative)
== END 2022-12-11 01:11 | disposition home or self-care (01) ==
PROVIDERS: Emergency Provider Nurse Practitioner Family; PCP Registered Nurse
DX: K52.9 Noninfective gastroenteritis and colitis, unspecified (principal)
CPT/HCPCS: 80053; 83690; 84703; 85025; 96361; 96374; 96375; 99284; J2270; J2405; J7030

== ENCOUNTER 2022-12-12 22:02 | Emergency (ER) | payer OTHER, BC, SELFPAY ==
[2022-12-12 22:06] VITALS: BP 160/99; PULSE 84; RESP 16; TEMP 37.1; O2SAT 98; BMI 42.4
--- NOTE | 2022-12-12 22:12 | ED_ITS ---
HPI - Extremity Injury (Lower) General: Chief Complaint: Extremity Injury, Lower Stated Complaint: left ankle injury Time Seen by Provider: 12/12/22 22:06 Source: patient Mode of arrival: ambulatory Limitations: no limitations History of Present Illness: Patient is a 32-year-old female presents to ED today with complaint of a left ankle injury that she sustained just prior to arrival after stepping in a pothole and inverting the foot. She is complaining of pain and swelling to the lateral aspect of the left ankle. She states she is not able to bear weight on the extremity secondary to pain. She denies numbness, tingling, loss of sensation to the foot. She has no other injuries or complaints at this time. MD complaint: ankle injury Onset (ago): hour(s) Injury: Left: foot Type of Injury: inversion Place: home Severity: severe Relieving factors: immobilization Exacerbating factors: weight bearing Context: other (twisted) Associated symptoms: Reports inability to bear weight Other symptoms: none Review of Systems Musc: Reports: joint pain (L ankle) and joint swelling ( L ankle); Denies: neck pain, back pain, extremity pain or extremity swelling Neuro: Denies: numbness in extremities, weakness in extremities or sensory changes PFSH ED PFSH: Medical History Asthma Fatty liver IBS (irritable bowel syndrome) PCOS (polycystic ovarian syndrome) Right upper quadrant abdominal pain Surgical History History of ankle surgery History of cholecystectomy History of right knee surgery Family History Grandmother Diabetes Mother Diabetes Cancer Hyperlipidemia Father Heart disease Cancer Hyperlipidemia Hypertension Denies family history of Colon cancer Ovarian cancer Breast cancer Uterine cancer Thyroid disease Stroke Social History Smoking and tobacco status: never smoked Alcohol intake: never Substance/Drug Use: never Adopted: No Caregiver/support person: No Lives independently: No Household members: spouse Marital status: Current occupational status: employed Sexually active: Yes Do you think of yourself as: Straight/Heterosexual Current gender identity: Female Female Reproductive History: Date of last menstrual period: 12/06/22 Physical Exam Const: COMMON NORMALS: no acute distress, no limitations and alert Extremity: COMMON NORMALS: capillary refill normal, no clubbing, cyanosis or edema, no calf tenderness and no pedal edema GENERAL: Yes normal exam except as noted LEFT LOWER EXTREMITY: Yes ankle joint (significant swelling/tenderness overlying lateral malleolus) Left ankle: Yes ROM (limited secondary to pain) and Yes neurovascular exam (normal) Neuro: SENSORIUM/ORIENTATION: Yes alert Course Vital Signs: Vital signs: Vital Signs Temperature 98.7 F 12/12/22 22:06 Pulse Rate 84 12/12/22 22:06 Respiratory Rate 16 12/12/22 22:06 Blood Pressure 160/99 12/12/22 22:06 Pulse Oximetry 98 12/12/22 22:06 Oxygen Delivery Me thod Room Air 12/12/22 22:06 MDM - Extremity Injury (Lower) Medical Decision Making XR showing a lateral malleolus nondisplaced fracture. She will be placed in a splint, given crutches and instructions for nonweightbearing and will follow up with orthopedics. Lab Data Radiology Impressions Ankle X-Ray 12/12/22 22:26 IMPRESSION: Nondisplaced 5 mm acute fracture of the tip of the lateral malleolus. All radiology interpretation(s) finalized by discharge Discharge Plan Discharge Patient Disposition: Home Clinical Impression: Closed low lateral malleolus fracture Qualifiers: Encounter type: initial encounter Laterality: left Qualified Code(s): S82.62XA - Displaced fracture of lateral malleolus of left fibula, initial encounter for closed fracture Condition: Stable Prescriptions: No Action epinephrine 0.1 mg/0.1 mL auto-injector SUBCUT albuterol sulfate [Ventolin HFA] 90 mcg/actuation HFA aerosol inhaler 1 inh inhalation QID 30 Days Qty: 8.5 2RF albuterol sulfate 2.5 mg /3 mL (0.083 %) solution for nebulization 2.5 mg inhalation Q8H PRN (Reason: bronchospasm) Qty: 180 0RF fluticasone propion-salmeterol [Advair Diskus] 250-50 mcg/dose blister with device 1 inh inhalation BID 30 Days Qty: 60 0RF Ozempic 0.25 mg or 0.5 mg(2 mg/1.5 mL) pen injector 0.5 mg SUBCUT .weekly Qty: 4.5 0RF meloxicam 15 mg tablet 15 mg PO DAILY Qty: 20 0RF (DME) blood-glucose meter [Blood Glucose Monitoring] Kit See Rx Instructions .Route Qty: 1 0RF Rx Instructions: two times daily ondansetron 4 mg tablet,disintegrating 4 mg PO Q8H PRN (Reason: nausea and vomiting) Qty: 7 0RF hydrocodone-acetaminophen 5-325 mg tablet 1 tab PO Q8H PRN (Reason: pain (scale score 7-10)) Qty: 7 0RF Discharge Orders: Discharge ED (Routine); Ordered 12/13/22 Ordered By: Naida De Referrals: Kamari Ruiz, [facility] [Primary Care Provider] - Activity Restrictions/Additional Instructions: As we discussed please ice and elevate the extremity. No weightbearing until follow-up with orthopedics. Case management should reach out to you shortly to help set you up with this follow-up appointment. Stand Alone Forms: Work/School Release Coding Level of Care Code ED Clinical Rehabilitation Aide for Jani Cooper
--- NOTE | 2022-12-12 22:26 | XRR_ITS ---
PROCEDURE INFORMATION: Exam: XR Left Ankle Exam date and time: 12/12/2022 11:15 PM Age: 32 years old Clinical indication: Pain; Ankle; Left; Additional info: Stepped in pothole/ left ankle pain TECHNIQUE: Imaging protocol: Radiologic exam of the left ankle. Views: 3 or more views. COMPARISON: No relevant prior studies available. FINDINGS: Bones/joints: Nondisplaced 5 mm acute fracture of the tip of the lateral malleolus. Distal tibia, talus, and calcaneus are intact. No significant joint narrowing. No joint dislocation. No joint effusion noted. Soft tissues: Soft tissue swelling noted. XR/XR ankle LT min 3V* [id number] IMPRESSION: Nondisplaced 5 mm acute fracture of the tip of the lateral malleolus.
--- NOTE | 2022-12-13 08:03 | PC.SOCIAL ---
Ortho Referral Referral message to ortho at this time. Clinic to contact patient with appt date/time.
== END 2022-12-13 00:27 | disposition home or self-care (01) ==
PROVIDERS: Emergency Provider Physician Assistant; PCP Registered Nurse
DX: S82.65XA Nondisplaced fracture of lateral malleolus of left fibula, initial encounter for closed fracture (principal); W18.42XA Slipping, tripping and stumbling without falling due to stepping into hole or opening, initial encounter
CPT/HCPCS: 29515; 73610; 99283; E0114

== ENCOUNTER 2022-12-14 11:38 | Outpatient (CLI) | payer OTHER, BC, SELFPAY | END 2022-12-14 11:39 | disposition home or self-care (01) | LOC: SPT 11:39 | PROVIDERS: PCP Registered Nurse; Visit Provider Podiatrist Foot & Ankle Surgery | DX: Z46.89 Encounter for fitting and adjustment of other specified devices (principal); S82.832D Other fracture of upper and lower end of left fibula, subsequent encounter for closed fracture with routine healing; X58.XXXD Exposure to other specified factors, subsequent encounter | CPT/HCPCS: 97760; L4361 ==

== ENCOUNTER → 2022-12-28 08:23 | Outpatient (BNVA) | payer OTHER, BC, SELFPAY | PROVIDERS: PCP Registered Nurse; Visit Provider Podiatrist Foot & Ankle Surgery | DX: S99.922A Unspecified injury of left foot, initial encounter; X58.XXXA Exposure to other specified factors, initial encounter; E11.9 Type 2 diabetes mellitus without complications | CPT/HCPCS: 73610 ==

== ENCOUNTER 2022-12-28 10:00 | Outpatient (CLI) | payer OTHER, BC, SELFPAY | END 2022-12-28 10:01 | disposition home or self-care (01) | LOC: SPT 10:02 | PROVIDERS: PCP Registered Nurse; Visit Provider Podiatrist Foot & Ankle Surgery | DX: Z46.89 Encounter for fitting and adjustment of other specified devices (principal); S82.62XD Displaced fracture of lateral malleolus of left fibula, subsequent encounter for closed fracture with routine healing; X58.XXXD Exposure to other specified factors, subsequent encounter | CPT/HCPCS: 97760; L1902 ==

== ENCOUNTER 2023-01-09 14:30 | Outpatient (CLI) | payer OTHER, BC, SELFPAY | END 2023-01-09 14:31 | disposition home or self-care (01) | LOC: SLEEP 01-10 15:52 | PROVIDERS: PCP Registered Nurse; Visit Provider Registered Nurse | DX: R40.0 Somnolence (principal); R06.83 Snoring; R53.83 Other fatigue; N97.0 Female infertility associated with anovulation | CPT/HCPCS: 80053; 83520; 84146; 84443; 85025; G0399 ==

== ENCOUNTER 2023-01-16 06:00 | Outpatient (RCR) | payer OTHER, BC, SELFPAY | END 2023-01-23 23:59 | disposition home or self-care (01) | LOC: WPT 06:00 | PROVIDERS: PCP Registered Nurse; Visit Provider Podiatrist Foot & Ankle Surgery | DX: M25.372 Other instability, left ankle (principal) | CPT/HCPCS: 97110; 97112; 97161; 97530 ==

== ENCOUNTER 2023-01-24 06:00 | Outpatient (RCR) | payer OTHER, BC, SELFPAY | END 2023-02-22 23:59 | disposition home or self-care (01) | LOC: WPT 06:00 | PROVIDERS: PCP Registered Nurse; Visit Provider Podiatrist Foot & Ankle Surgery | DX: M25.372 Other instability, left ankle (principal) | CPT/HCPCS: 97110; 97112; 97530 ==

== ENCOUNTER → 2023-01-24 07:52 | Outpatient (BNVA) | payer OTHER, BC, SELFPAY | PROVIDERS: PCP Registered Nurse; Visit Provider Obstetrics & Gynecology | DX: N97.9 Female infertility, unspecified (principal) | CPT/HCPCS: 76830 ==

== ENCOUNTER → 2023-01-25 09:26 | Outpatient (BNVA) | payer OTHER, BC, SELFPAY | PROVIDERS: PCP Registered Nurse; Visit Provider Internal Medicine | DX: E11.9 Type 2 diabetes mellitus without complications (principal) | CPT/HCPCS: 80053; 80061; 82043; 83036 ==